=== PATIENT | female | born 1965 | race Asian ===

== ENCOUNTER 2016-05-20 16:46 | Emergency (ER) | payer MEDICAID, OTHER ==
[~2016-05-20] VITALS: Ht 149.9 cm; Wt 54.5 kg
[~2016-05-20 16:46] MED LIST: HYDR25TA PO; LISI-661 PO
[2016-05-20] MEDS ORDERED: CloNIDine HCL 0.2 MG TABLET PO ONE (17:45)
[2016-05-20 17:49] LABS: BASOPHILS % (AUTO) 1.3 % (0.0-2.0); EOSINOPHILS % (AUTO) 4.5 % (1.0-6.0); HEMOGLOBIN 10.1 g/dL (12.0-16.0); LYMPHOCYTES # (AUTO) 1.8 K/uL (1.0-4.8); LYMPHOCYTES % (AUTO) 32.1 % (22.0-44.0); MEAN CORPUSCULAR HEMOGLOBIN 21.6 pg (26.0-34.0); MEAN CORPUSCULAR HGB CONC 30.7 G/dL (31.0-37.0); MEAN CORPUSCULAR VOLUME 71 fL (80-100); MONOCYTES # (AUTO) 0.3 K/uL (0.1-1.0); MONOCYTES % (AUTO) 5.3 % (2.0-9.0); NEUTROPHILS # (AUTO) 3.1 K/uL (1.8-7.7); NEUTROPHILS % (AUTO) 56.8 % (40.0-70.0); PLATELET COUNT (AUTO) 372 K/uL (150-450); RED BLOOD CELL COUNT(AUTO) 4.67 MIL/uL (4.00-5.20); RED CELL DISTRIBUTION WIDTH 21.4 % (11.5-14.5); WHITE BLOOD COUNT (AUTO) 5.5 K/uL (4.5-11.0)
[2016-05-20 17:54] LABS: CALCIUM, TOTAL 9.1 mg/dL (8.8-10.5)
[2016-05-20 18:00] LABS: ALBUMIN 3.8 g/dL (3.4-5.0); BILIRUBIN,TOTAL 0.2 mg/dL (0.1-1.0); TOTAL PROTEIN, SERUM 8.8 g/dL (6.4-8.2)
[2016-05-20 18:15] LABS: APPEARANCE,URINE CLEAR (CLEAR); GLUCOSE, URINE (UA) NEGATIVE (NEGATIVE); KETONES,URINE NEGATIVE (NEGATIVE); LEUKOCYTE ESTERASE ,URINE NEGATIVE (NEGATIVE); OCCULT BLOOD,URINE MODERATE (NEGATIVE); PH,URINE 6.5 (5.0-8.0); PROTEIN,URINE POS 1+ (NEGATIVE)
[2016-05-20] MEDS ORDERED: POTASSIUM CHLORIDE 20 MEQ ER TABLET PO ONE (18:15)
[2016-05-20 18:26] LABS: RBC MORPHOLOGY COMMENT ABNORMAL RBC MORPH
[2016-05-20 18:31] LABS: SQUAMOUS EPITHELIAL CELL,UR Few /LPF (None Seen)
[2016-05-20 18:33] LABS: WBC,URINE 0-2 /HPF (0-5)
[2016-05-20 18:54] VITALS: BP 156/103
== END 2016-05-20 19:09 | disposition home or self-care (01) ==
LOC: EMS 16:47
DX: I10 Essential (primary) hypertension (principal); D64.9 Anemia, unspecified; R42 Dizziness and giddiness
CPT/HCPCS: 93005; 99285

== ENCOUNTER 2016-07-24 01:44 | Emergency (ER) | payer OTHER ==
[~2016-07-24] VITALS: Ht 152.4 cm; Wt 54.5 kg
[2016-07-24] MEDS ORDERED: AMLO-511 PO (01:52)
[2016-07-24] MEDS ORDERED: SIMV-260 PO (01:52)
[2016-07-24] MEDS ORDERED: FERR-89 PO (01:52)
[2016-07-24] MEDS ORDERED: LISI-661 PO (01:52)
[2016-07-24] MEDS ORDERED: LISINOPRIL 10 MG TABLET PO ONE (02:30)
[2016-07-24 03:27] LABS: BASOPHILS # (AUTO) 0.06 K/uL (0.00-0.20); BASOPHILS % (AUTO) 1.2 % (0.0-2.0); EOSINOPHILS # (AUTO) 0.25 K/uL (0.00-0.70); EOSINOPHILS % (AUTO) 5.17 % (1.0-6.0); HEMATOCRIT 42.4 % (36-46); HEMOGLOBIN 13.7 g/dL (12.0-16.0); LYMPHOCYTES # (AUTO) 1.5 K/uL (1.0-4.8); LYMPHOCYTES % (AUTO) 30.9 % (22.0-44.0); MEAN CORPUSCULAR HEMOGLOBIN 26.8 pg (26.0-34.0); MEAN CORPUSCULAR HGB CONC 32.3 G/dL (31.0-37.0); MEAN CORPUSCULAR VOLUME 83 fL (80-100); MONOCYTES # (AUTO) 0.3 K/uL (0.1-1.0); MONOCYTES % (AUTO) 6.5 % (2.0-9.0); NEUTROPHILS # (AUTO) 2.7 K/uL (1.8-7.7); NEUTROPHILS % (AUTO) 56.3 % (40.0-70.0); PLATELET COUNT (AUTO) 369 K/uL (150-450); RED BLOOD CELL COUNT(AUTO) 5.12 MIL/uL (4.00-5.20); RED CELL DISTRIBUTION WIDTH 25.6 % (11.5-14.5); WHITE BLOOD COUNT (AUTO) 4.9 K/uL (4.5-11.0)
[2016-07-24 03:31] LABS: ANION GAP 17 mmol/L (8-16); CALCIUM, TOTAL 9.8 mg/dL (8.8-10.5); CARBON DIOXIDE 26 mmol/L (22-29); CHLORIDE 104 mmol/L (98-107); CREATININE 1.03 mg/dL (0.60-1.30); GLOMERULAR FILTR. RATE CALC 57 mL/min (>60); POTASSIUM 3.6 mmol/L (3.5-5.1); PROTHROMBIN TIME 10.2 SEC (9.4-11.6); SODIUM SERUM 147 mmol/L (136-145); UREA NITROGEN, BLOOD 14 mg/dL (7-18)
[2016-07-24 03:49] LABS: B-TYPE NATRIURETIC PEPTIDE 26 pg/mL (0-100)
[2016-07-24 04:00] LABS: ALANINE AMINOTRANSFERASE 59 U/L (12-78); ALBUMIN 4.5 g/dL (3.4-5.0); ASPARTATE AMINOTRANSFERASE 57 U/L (15-37); BILIRUBIN,TOTAL 0.3 mg/dL (0.1-1.0); CREATINE KINASE, TOTAL 168 U/L (26-192); TOTAL PROTEIN, SERUM 9.3 g/dL (6.4-8.2)
[2016-07-24 04:27] LABS: CREATINE KINASE MB 1.4 ng/mL (0-5)
[2016-07-24 05:17] VITALS: BP 159/80
== END 2016-07-24 05:20 | disposition home or self-care (01) ==
LOC: EMS 01:44
DX: I10 Essential (primary) hypertension (principal); R42 Dizziness and giddiness
CPT/HCPCS: 93005; 99285

== ENCOUNTER → 2023-03-31 | Outpatient (CLI) | payer SELFPAY ==
[~2023-03-31] MED LIST changes: +AMLO-257 PO; +FERR325T27 PO; -HYDR25TA PO; -LISI-661 PO; +LISI-893 PO; +SIMV-260 PO
== END | disposition home or self-care (01) ==
LOC: RADMN 10:47
PROVIDERS: ATTEND Internal Medicine Cardiovascular Disease
DX: J18.9 Pneumonia, unspecified organism (principal); R06.02 Shortness of breath
CPT/HCPCS: 71046